=== PATIENT | female | born 2000 | race Caucasian/White ===

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

== ENCOUNTER 2020-08-15 23:07 | Emergency (ER) | payer OTHER | END 2020-08-15 23:50 | disposition left against medical advice (07) | LOC: EC 23:07 | DX: S00.531A Contusion of lip, initial encounter (principal); Y04.8XXA Assault by other bodily force, initial encounter | CPT/HCPCS: 99283 ==